=== PATIENT | male | born 1990 | race Asian ===

== ENCOUNTER 2018-04-02 21:29 | Observation (INO) ==
--- NOTE | 2018-04-02 22:31 | ED ---
HPI General Chief Complaint: Abdominal Pain Stated Complaint: nausea vomiting, lower abdominal pain Time Seen by Provider: 04/02/18 22:17 Source: patient Mode of arrival: ambulatory Limitations: no limitations History of Present Illness HPI narrative: 27-year-old male came to the emergency room with history of significant abdominal pain pointing to the left lower quadrant area with vomiting and diarrhea that started today. Patient says that he has had this kind of pain in the past and was diagnosed with pancreatitis. He appeared to be in significant distress. Patient was tachycardic upon arrival. Patient said he had 4-5 episodes of vomiting and 2 episodes of diarrhea. He is otherwise a healthy person. Related Data Previous Rx's Medication Instructions Recorded pantoprazole 40 mg PO DAILY 30 Days #30 tab 04/03/18 Allergies Allergy/AdvReac Type Severity Reaction Status Date / Time penicillamine Allergy Shortness Verified 04/02/18 22:18 of Breath Review of Systems ROS: all other systems reviewed are negative [facility] Medical History Medical History GERD (gastroesophageal reflux disease) (Acute) IBS (irritable bowel syndrome) (Acute) Pancreatitis (Acute) Surgical History Surgical History No history of previous surgery (Acute) Family History Family History Other Coronary artery disease Social History Social History Substance History: Active Abuse Second Hand Smoke Exposure: No Smoking Status: Never smoker How Often Do You Have a Drink Containing Alcohol: Monthly or less Recent Travel in [facility] within the Last 8 Weeks: No Recent Out of Country Travel within the Last 8 Weeks: No Substance Abuse Detail Marijuana: Substance Use Status: Active Route Used Substance Abuse: By Mouth Reason for Use: Calm Down and Feels Good Immunization History Tetanus Immunization: >5 Years Exam Narrative Exam Narrative: GENERAL: Awake, alert, moderate to significant distress SKIN: Focused skin assessment warm/dry. HEAD: Atraumatic. Normocephalic. EYES: Pupils equal and round. No scleral icterus. No injection or drainage. ENT: No nasal bleeding or discharge. Mucous membranes pink and moist. NECK: Trachea midline. No JVD. CARDIOVASCULAR: Regular rate and rhythm. No murmur appreciated. RESPIRATORY: No accessory muscle use. Clear to auscultation. Breath sounds equal bilaterally. GASTROINTESTINAL: Abdomen soft, left lower quadrant tenderness, guarding. Hepatic and splenic margins not palpable. MUSCULOSKELETAL: No obvious deformities. No clubbing. No cyanosis. No edema. NEUROLOGICAL: Awake and alert. No obvious cranial nerve deficits. Motor grossly within normal limits. Normal speech. PSYCHIATRIC: Appropriate mood and affect; insight and judgment normal. Course Initial Documented Vital Signs Temperature 98.7 F 04/02/18 21:48 Pulse Rate 109 H 04/02/18 21:48 Respiratory Rate 16 04/02/18 21:48 Blood Pressure 121/83 04/02/18 21:48 Pulse Oximetry 100 04/02/18 21:48 Last Documented Vital Signs Temperature 97.6 F 04/03/18 11:04 Pulse Rate 94 H 04/03/18 11:04 Respiratory Rate 20 04/03/18 11:04 Blood Pressure 105/54 L 04/03/18 11:04 Pulse Oximetry 95 04/03/18 11:04 Medical Decision Making MDM Narrative Medical decision making narrative: 1:07 AM blood test results are back and patient has leukocytosis and lactic acidosis. He was given pain medication and IV fluid bolus. CT scan however appears to be negative as per the radiologist report. Patient was given IV Levaquin and IV Flagyl to cover for sepsis. I discussed the case with the hospitalist who has accepted the patient. I have ordered stool for C. difficile but patient has not had any more stool episodes here. Medical Screen Exam Complete: Yes Emergency Medical Condition: Yes Lab Data Result diagrams: 04/03/18 02:50 04/03/18 02:50 Lab Results 04/02/18 04/02/18 04/02/18 Range/Units 22:50 22:50 23:36 WBC 21.9 H (4.0-11.0) th/mm3 RBC 5.39 (4.50-5.90) mil/mm3 Hgb 17.3 H (13.0-17.0) gm/dL Hct 51.4 H (39.0-51.0) % MCV 95.3 (80.0-100.0) fL MCH 32.1 (27.0-34.0) pg MCHC 33.7 (32.0-36.0) % RDW 13.4 (11.6-17.2) % Plt Count 241 (150-450) th/mm3 MPV 8.3 (7.0-11.0) fL Neut % (Auto) 92.0 H (16.0-70.0) % Lymph % (Auto) 5.3 L (9.0-44.0) % [place] % (Auto) 2.6 (0.0-8.0) % Eos % (Auto) 0.0 (0.0-4.0) % Baso % (Auto) 0.1 (0.0-2.0) % Neut # (Auto) 20.2 H (1.8-7.7) th/mm3 Lymph # (Auto) 1.2 (1.0-4.8) th/mm3 [place] # (Auto) 0.6 (0.0-0.9) th/mm3 Eos # (Auto) 0.0 (0.0-0.4) th/mm3 Baso # (Auto) 0.0 (0.0-0.2) th/mm3 WBC Differential . Differential Comment Auto diff final Sodium 137 (136-145) meq/L Potassium 4.3 (3.5-5.1) meq/L Chloride 104 (98-107) meq/L Carbon Dioxide 19.5 L (21.0-32.0) meq/L Anion Gap 14 (5-15) meq/L BUN 25 H (7-18) mg/dL Creatinine 1.72 H (0.60-1.30) mg/dL Estimated GFR 47 L (>89) mL/min Random Glucose 132 H (74-106) mg/dL Lactic Acid 3.5 H (0.4-2.0) mmol/L Calcium 10.0 (8.5-10.1) mg/dL Magnesium 1.9 (1.5-2.5) mg/dL Total Bilirubin 0.5 (0.2-1.0) mg/dL AST 17 (15-37) U/L ALT 23 (12-78) U/L Alkaline Phosphatase 77 (45-117) U/L Total Protein 9.3 H (6.4-8.2) g/dL Albumin 5.3 H (3.4-5.0) g/dL Lipase 95 (73-393) U/L Urine Color (Yellw/Straw) Urine Clarity (Clear) Urine pH (5.0-8.5) Ur Specific [place] (1.002-1.035) Urine Protein (Neg-Trace) mg/dL Urine Glucose (UA) (Negative) mg/dL Urine Ketones (Negative) mg/dL Urine Occult Blood (Negative) Urine Nitrate (Negative) Urine Bilirubin (Negative) Urine Urobilinogen (Less than 2) mg/dL Ur Leukocyte Esterase (Negative) Urine RBC (0-3) /hpf Urine WBC (0-5) /hpf Ur Squamous Epith Cells (0-5) /hpf Hyaline Casts (0-3) /lpf Urine Mucus (Occasional) /lpf Micro UA Comment Ur Microscopic Review Urine Culture Comments 04/03/18 04/03/18 04/03/18 Range/Units 00:57 02:50 02:50 WBC 13.8 H (4.0-11.0) th/mm3 RBC 4.29 L (4.50-5.90) mil/mm3 Hgb 13.7 D (13.0-17.0) gm/dL Hct 41.3 (39.0-51.0) % MCV 96.3 (80.0-100.0) fL MCH 31.9 (27.0-34.0) pg MCHC 33.1 (32.0-36.0) % RDW 13.2 (11.6-17.2) % Plt Count 181 (150-450) th/mm3 MPV 7.8 (7.0-11.0) fL Neut % (Auto) 88.5 H (16.0-70.0) % Lymph % (Auto) 7.4 L (9.0-44.0) % [place] % (Auto) 3.6 (0.0-8.0) % Eos % (Auto) 0.0 (0.0-4.0) % Baso % (Auto) 0.5 (0.0-2.0) % Neut # (Auto) 12.2 H (1.8-7.7) th/mm3 Lymph # (Auto) 1.0 (1.0-4.8) th/mm3 [place] # (Auto) 0.5 (0.0-0.9) th/mm3 Eos # (Auto) 0.0 (0.0-0.4) th/mm3 Baso # (Auto) 0.1 (0.0-0.2) th/mm3 WBC Differential . Differential Comment Auto diff final Sodium (136-145) meq/L Potassium (3.5-5.1) meq/L Chloride (98-107) meq/L Carbon Dioxide (21.0-32.0) meq/L Anion Gap (5-15) meq/L BUN (7-18) mg/dL Creatinine (0.60-1.30) mg/dL Estimated GFR (>89) mL/min Random Glucose (74-106) mg/dL Lactic Acid 2.2 H (0.4-2.0) mmol/L Calcium (8.5-10.1) mg/dL Magnesium (1.5-2.5) mg/dL Total Bilirubin (0.2-1.0) mg/dL AST (15-37) U/L ALT (12-78) U/L Alkaline Phosphatase (45-117) U/L Total Protein (6.4-8.2) g/dL Albumin (3.4-5.0) g/dL Lipase (73-393) U/L Urine Color Yellow (Yellw/Straw) Urine Clarity Clear (Clear) Urine pH 6.0 (5.0-8.5) Ur Specific [place] 1.040 H (1.002-1.035) Urine Protein 30 H (Neg-Trace) mg/dL Urine Glucose (UA) Negative (Negative) mg/dL Urine Ketones Trace H (Negative) mg/dL Urine Occult Blood Negative (Negative) Urine Nitrate Negative (Negative) Urine Bilirubin Negative (Negative) Urine Urobilinogen Less than 2 (Less than 2) mg/dL Ur Leukocyte Esterase Negative (Negative) Urine RBC 2 (0-3) /hpf Urine WBC 1 (0-5) /hpf Ur Squamous Epith Cells <1 (0-5) /hpf Hyaline Casts 15 (0-3) /lpf Urine Mucus Few H (Occasional) /lpf Micro UA Comment Culture not ind Ur Microscopic Review Not Reportable Urine Culture Comments Culture not ind 04/03/18 04/03/18 Range/Units 02:50 07:26 WBC (4.0-11.0) th/mm3 RBC (4.50-5.90) mil/mm3 Hgb (13.0-17.0) gm/dL Hct (39.0-51.0) % MCV (80.0-100.0) fL MCH (27.0-34.0) pg MCHC (32.0-36.0) % RDW (11.6-17.2) % Plt Count (150-450) th/mm3 MPV (7.0-11.0) fL Neut % (Auto) (16.0-70.0) % Lymph % (Auto) (9.0-44.0) % [place] % (Auto) (0.0-8.0) % Eos % (Auto) (0.0-4.0) % Baso % (Auto) (0.0-2.0) % Neut # (Auto) (1.8-7.7) th/mm3 Lymph # (Auto) (1.0-4.8) th/mm3 [place] # (Auto) (0.0-0.9) th/mm3 Eos # (Auto) (0.0-0.4) th/mm3 Baso # (Auto) (0.0-0.2) th/mm3 WBC Differential Differential Comment Sodium 142 (136-145) meq/L Potassium 4.3 (3.5-5.1) meq/L Chloride 111 H (98-107) meq/L Carbon Dioxide 22.8 (21.0-32.0) meq/L Anion Gap 8 (5-15) meq/L BUN 21 H (7-18) mg/dL Creatinine 1.19 (0.60-1.30) mg/dL Estimated GFR 72 L (>89) mL/min Random Glucose 124 H (74-106) mg/dL Lactic Acid 0.9 (0.4-2.0) mmol/L Calcium 7.6 L D (8.5-10.1) mg/dL Magnesium (1.5-2.5) mg/dL Total Bilirubin 0.3 (0.2-1.0) mg/dL AST 10 L (15-37) U/L ALT 18 (12-78) U/L Alkaline Phosphatase 53 (45-117) U/L Total Protein 6.4 D (6.4-8.2) g/dL Albumin 3.6 D (3.4-5.0) g/dL Lipase (73-393) U/L Urine Color (Yellw/Straw) Urine Clarity (Clear) Urine pH (5.0-8.5) Ur Specific [place] (1.002-1.035) Urine Protein (Neg-Trace) mg/dL Urine Glucose (UA) (Negative) mg/dL Urine Ketones (Negative) mg/dL Urine Occult Blood (Negative) Urine Nitrate (Negative) Urine Bilirubin (Negative) Urine Urobilinogen (Less than 2) mg/dL Ur Leukocyte Esterase (Negative) Urine RBC (0-3) /hpf Urine WBC (0-5) /hpf Ur Squamous Epith Cells (0-5) /hpf Hyaline Casts (0-3) /lpf Urine Mucus (Occasional) /lpf Micro UA Comment Ur Microscopic Review Urine Culture Comments Imaging Data Radiologist's impression: Abdomen/Pelvis CT 04/03/18 00:00 CONCLUSION: 1. No definite acute CT abnormality in the abdomen or pelvis. Discharge Plan Discharge Disposition Patient Disposition: ED Admit(ED Internal Use Only) Discharge Order Discharge Orders: Discharge Order (Routine); Ordered 04/03/18 Ordered By: Lexi Abel ED Use Only Admit Order (Routine); Ordered 04/03/18 Ordered By: Ginger Delacruz Discharge Details Anticipated Discharge Date: 04/03/18 Physicians Team ED Provider: Ginger Delacruz Primary Care Provider: Primary Care Lian Butler Attending Provider: Lexi Abel Status ED Status: Left Department Discharge Information Discharge Date/Time: 04/03/18 03:32
[2018-04-02] MEDS ORDERED: Ketorolac Inj 30 MG/ML (IVP) Vial IV.PUSH ONE (22:36)
[2018-04-02] MEDS ORDERED: Pantoprazole Inj 40 MG Vial IV.PUSH ONE (22:36)
[2018-04-02] MEDS: Sod Chloride 0.9% Inj 1,000 ML IV.SIG ONE ×2 (22:45→23:30)
[2018-04-02 23:08] LABS: Baso % (Auto) 0.1 % (0.0-2.0); Hematocrit 51.4 % (39.0-51.0); Hemoglobin 17.3 gm/dL (13.0-17.0); Lymph # (Auto) 1.2 th/mm3 (1.0-4.8); Lymph % (Auto) 5.3 % (9.0-44.0); Mean Corpuscular HGB Conc 33.7 % (32.0-36.0); Mean Corpuscular Hemoglobin 32.1 pg (27.0-34.0); Mean Corpuscular Volume 95.3 fL (80.0-100.0); Mean Platelet Volume 8.3 fL (7.0-11.0); Mono # (Auto) 0.6 th/mm3 (0.0-0.9); Mono % (Auto) 2.6 % (0.0-8.0); Neut # (Auto) 20.2 th/mm3 (1.8-7.7); Platelet Count 241 th/mm3 (150-450); Red Blood Count 5.39 mil/mm3 (4.50-5.90); Red Cell Distribution Width 13.4 % (11.6-17.2); White Blood Count 21.9 th/mm3 (4.0-11.0)
[2018-04-02 23:19] LABS: Alanine Aminotransferase 23 U/L (12-78); Albumin 5.3 g/dL (3.4-5.0); Anion Gap 14 meq/L (5-15); Aspartate Aminotransferase 17 U/L (15-37); Blood Urea Nitrogen 25 mg/dL (7-18); Carbon Dioxide 19.5 meq/L (21.0-32.0); Chloride 104 meq/L (98-107); Glomerular Filtration Rate 47 mL/min (>89); Glucose,Random 132 mg/dL (74-106); Lipase 95 U/L (73-393); Magnesium 1.9 mg/dL (1.5-2.5); Potassium 4.3 meq/L (3.5-5.1); Sodium 137 meq/L (136-145)
[2018-04-02 23:22] LABS: Alkaline Phosphatase 77 U/L (45-117); Total Protein 9.3 g/dL (6.4-8.2)
[2018-04-02] MEDS ORDERED: Sod Chloride 0.9% Inj 1,000 ML IV.SIG SCH (23:30)
[2018-04-03] MEDS ORDERED: Sod Chloride 0.9% Inj 1,000 ML IV.SIG SCH (00:15)
--- NOTE | 2018-04-03 00:47 | CT ---
EXAM DATE: 04/03/2018 12:42 AM EST AGE/SEX: 27 years / Male INDICATIONS: Left lower qaudrant pain with vomiting. CLINICAL DATA: This is the patient's initial encounter. Patient reports that signs and symptoms have been present for 1 day and indicates a pain score of 10/10. MEDICAL/SURGICAL HISTORY: Irritable bowel syndrome. Pancreatitis. None. ORAL CONTRAST: No oral contrast ingested. RADIATION DOSE: 7.60 CTDI (mGy) COMPARISON: No prior exams available for comparison. TECHNIQUE: Multiple contiguous axial images were obtained through the abdomen and pelvis following b olus infusion of 70 ml Omnipaque 350 (iohexol) nonionic water-soluble contrast as a single exam dos e. No oral contrast ingested. Using automated exposure control and adjustment of the mA and/or kV ac cording to patient size, radiation dose was kept as low as reasonably achievable to obtain optimal di agnostic quality images. DICOM format image data is available electronically for review and comparis on. FINDINGS: LOWER LUNGS: The visualized lower lungs are clear. LIVER: The liver has a homogeneous density without space-occupying lesion. There is no dilation of t he biliary tree. SPLEEN: Homogeneous density without enlargement. PANCREAS: Unremarkable without mass or calcification. KIDNEYS: Kidneys demonstrate symmetrical enhancement and are symmetrical in size without evidence fo r radiopaque renal calculi or hydronephrosis. ADRENAL GLANDS: Unremarkable. AORTA: Mami-aneurysmal. BOWEL/MESENTERY: : Is decompressed which accentuates the colonic wall. Appendix is visualized and no rmal in appearance. Small bowel loops are normal in caliber. No evidence for obstruction. No free flu id or drainable fluid collections. No pneumatosis or free air. ABDOMINAL WALL: Intact. RETROPERITONEUM: No evidence of adenopathy in the retrocrural, para-aortic, or deep pelvic regions. BLADDER: Contours are smooth. REPRODUCTIVE: No abnormal masses or calcifications seen. BONY STRUCTURES: Unremarkable. CONCLUSION: 1. No definite acute CT abnormality in the abdomen or pelvis. Electronically signed by: Ruel De Anda MD Board Certified Radiologist 04/03/2018 12:46 AM E
[2018-04-03] MEDS ORDERED: Morphine Inj 4 MG/ML Vial IV.PUSH ONE (00:52)
[2018-04-03 01:21] LABS: Bilirubin,Urine Negative (Negative); Clarity,Urine Clear (Clear); Color,Urine Yellow (Yellw/Straw); Glucose,Urine (UA) Negative (Negative); Hyaline Casts,Urine 15 /lpf (0-3); Leukocyte Esterase,Urine Negative (Negative); Mucus,Urine Few /lpf (Occasional); Nitrite,Urine Negative (Negative); Squamous Epithelial Cell,Urine <1 /hpf (0-5)
[2018-04-03] MEDS ORDERED: Bisacodyl 10 MG Supp RECTAL PRN (02:08)
[2018-04-03] MEDS ORDERED: Acetaminophen 325 MG Tablet PO PRN (02:08)
[2018-04-03] MEDS ORDERED: Sod Chloride 0.9% Inj 1,000 ML IV.CONT SCH (02:15)
[2018-04-03] MEDS ORDERED: Morphine Inj 4 MG/ML Vial IV.PUSH PRN (02:30)
[2018-04-03 02:58] LABS: Baso # (Auto) 0.1 th/mm3 (0.0-0.2); Baso % (Auto) 0.5 % (0.0-2.0); Hematocrit 41.3 % (39.0-51.0); Hemoglobin 13.7 gm/dL (13.0-17.0); Lymph % (Auto) 7.4 % (9.0-44.0); Mean Corpuscular HGB Conc 33.1 % (32.0-36.0); Mean Corpuscular Hemoglobin 31.9 pg (27.0-34.0); Mean Corpuscular Volume 96.3 fL (80.0-100.0); Mean Platelet Volume 7.8 fL (7.0-11.0); Mono # (Auto) 0.5 th/mm3 (0.0-0.9); Mono % (Auto) 3.6 % (0.0-8.0); Neut # (Auto) 12.2 th/mm3 (1.8-7.7); Neut % (Auto) 88.5 % (16.0-70.0); Platelet Count 181 th/mm3 (150-450); Red Blood Count 4.29 mil/mm3 (4.50-5.90); Red Cell Distribution Width 13.2 % (11.6-17.2); White Blood Count 13.8 th/mm3 (4.0-11.0)
--- NOTE | 2018-04-03 03:34 | P.HP ---
History of Present Illness Service: [facility] Primary Care Physician: No Primary Care Physician History of Present Illness: 27-year-old male with a past medical history significant for IBS, GERD and previous episode of pancreatitis presents to the emergency department for evaluation of abdominal pain, nausea and vomiting. The patient reports that when he went to work this morning he had reflux. He endorses nausea and vomiting throughout the day with severe, left-sided abdominal pain. He endorses associated chills without fever. He states he feels like he has eaten too much junk food recently and his body cannot handle it. He denies any chest pain breath. Review of Systems All other systems reviewed negative except as stated in HPI [facility] - History History Provided By: Patient - Medical History Medical History: Medical History (Last Updated 04/03/18 @ 03:29 by Ruthann Mason MD) GERD (gastroesophageal reflux disease) IBS (irritable bowel syndrome) Pancreatitis - Surgical History Surgical History: Surgical History (Last Reviewed 04/03/18 @ 03:29 by Ruthann Mason MD) No history of previous surgery - Family History Family History: Family History (Last Updated 04/03/18 @ 03:30 by Ruthann Mason MD) Other Coronary artery disease - Social History I have reviewed the patient's Social History: Yes - Tobacco History Second Hand Smoke Exposure: No Tobacco Use In Past 30 Days: No Smoking Status: Never smoker - Alcohol History How Often Do You Have a Drink Containing Alcohol: Monthly or less - Substance Use History Substance History: Active Abuse - Substance Use Type Marijuana Status: Active Route Used: By Mouth Reason for Use: Calm Down, Feels Good - Travel History Recent Travel in the [place] Within the Last 8 Weeks: No Recent Travel Out of the Country Within the Last 8 Weeks: No - Immunization History Tetanus Immunization: >5 Years Medications and Allergies Active Medications: Active Medications Acetaminophen (Tylenol) 650 mg PO Q4H PRN PRN Reason: Temp > 100.4 Al Hydroxide/Mg Hydroxide (Milk Of Magnesia Liq) 30 ml PO Q12H PRN PRN Reason: Mild Constipation Bisacodyl (Dulcolax Supp) 10 mg RECTAL DAILY PRN PRN Reason: SEVERE CONSITIPATION Sodium Chloride (Ns Inj) 1,000 mls @ 100 mls/hr IV.CONT .Q10H [facility] Last Admin: 04/03/18 02:30 Dose: 100 mls/hr Lactulose (Lactulose Liq) 30 ml PO DAILY PRN PRN Reason: SEVERE CONSITIPATION Morphine Sulfate (Morphine Inj) 2 mg IV.PUSH Q4H PRN PRN Reason: Pain 6-10 Ondansetron HCl (Zofran Inj) 4 mg IV.PUSH Q6H PRN PRN Reason: NAUSEA OR VOMITING Senna/Docusate Sodium (Tamra-Colace) 1 tab PO BID [facility] Sennosides (Senokot) 17.2 mg PO Q12H PRN PRN Reason: Moderate Constipation Sodium Chloride (Ns Flush) 2 ml IV.FLUSH BID LEO Sodium Chloride (Ns Flush) 2 ml IV.FLUSH PRN PRN PRN Reason: FLUSH AFTER USING IV ACCESS Allergies Allergy/AdvReac Type Severity Reaction Status Date / Time penicillamine Allergy Shortness Verified 04/02/18 22:18 of Breath Home Medications Medication Instructions Recorded Confirmed Type No Known Home Medications 04/02/18 04/02/18 History Exam Vital signs: Vital Signs 04/02/18 21:48 04/03/18 01:47 Temperature 98.7 F Pulse Rate 109 H 95 H Respiratory Rate 16 18 Blood Pressure 121/83 139/73 Pulse Oximetry 100 95 Intake & Output 04/02/18 04/02/18 04/03/18 06:59 18:59 06:59 Intake Total 3250 / 3250 Balance 3250 / 3250 Weight 81.647 kg Intake: IV 3250 / 3250 Levaquin 750 mg Premix Inj 150 150 / 150 ML @ 100 mls/hr IV.SIG ONCE ONE Rx#:[id number] NS Inj 1,000 ML @ 1000 mls/hr 3000 / 3000 IV.SIG BOLUS LEO Rx#:[id number] Flagyl 500 MG Inj 100 ML @ 100 100 / 100 mls/hr IV.SIG ONCE ONE Rx#: [id number] Narrative: Gen.: No acute distress Head: Normocephalic. Atraumatic. EENT: Pupils equal round and reactive to light. Nose without drainage. Airway intact. Throat without injection. Cardiovascular: Regular rate and rhythm. No murmurs, rubs or gallops. Respiratory: Lungs clear to auscultation bilaterally. No wheezes or rhonchi. Abdomen: Soft, extremely tender to palpation in the left lower quadrant, nondistended. No peritoneal signs. Musculoskeletal: No gross deformities. No edema. Skin: No obvious rashes or erythema. Neuro: Sensory and motor grossly intact. Cranial nerves II through XII grossly intact. Results - Labs CBC & Chem 7: 04/03/18 02:50 04/02/18 22:50 Labs: Laboratory Results - last 24 hr 04/02/18 04/02/18 04/02/18 22:50 22:50 23:36 WBC 21.9 H RBC 5.39 Hgb 17.3 H Hct 51.4 H MCV 95.3 MCH 32.1 MCHC 33.7 RDW 13.4 Plt Count 241 MPV 8.3 Neut % (Auto) 92.0 H Lymph % (Auto) 5.3 L [place] % (Auto) 2.6 Eos % (Auto) 0.0 Baso % (Auto) 0.1 Neut # (Auto) 20.2 H Lymph # (Auto) 1.2 [place] # (Auto) 0.6 Eos # (Auto) 0.0 Baso # (Auto) 0.0 WBC Differential . Differential Comment Auto diff final Sodium 137 Potassium 4.3 Chloride 104 Carbon Dioxide 19.5 L Anion Gap 14 BUN 25 H Creatinine 1.72 H Estimated GFR 47 L Random Glucose 132 H Lactic Acid 3.5 H Calcium 10.0 Magnesium 1.9 Total Bilirubin 0.5 AST 17 ALT 23 Alkaline Phosphatase 77 Total Protein 9.3 H Albumin 5.3 H Lipase 95 Urine Color Urine Clarity Urine pH Ur Specific [place] Urine Protein Urine Glucose (UA) Urine Ketones Urine Occult Blood Urine Nitrate Urine Bilirubin Urine Urobilinogen Ur Leukocyte Esterase Urine RBC Urine WBC Ur Squamous Epith Cells Hyaline Casts Urine Mucus Micro UA Comment Ur Microscopic Review Urine Culture Comments 04/03/18 04/03/18 04/03/18 00:57 02:50 02:50 WBC 13.8 H RBC 4.29 L Hgb 13.7 D Hct 41.3 MCV 96.3 MCH 31.9 MCHC 33.1 RDW 13.2 Plt Count 181 MPV 7.8 Neut % (Auto) 88.5 H Lymph % (Auto) 7.4 L [place] % (Auto) 3.6 Eos % (Auto) 0.0 Baso % (Auto) 0.5 Neut # (Auto) 12.2 H Lymph # (Auto) 1.0 [place] # (Auto) 0.5 Eos # (Auto) 0.0 Baso # (Auto) 0.1 WBC Differential . Differential Comment Auto diff final Sodium Potassium Chloride Carbon Dioxide Anion Gap BUN Creatinine Estimated GFR Random Glucose Lactic Acid 2.2 H Calcium Magnesium Total Bilirubin AST ALT Alkaline Phosphatase Total Protein Albumin Lipase Urine Color Yellow Urine Clarity Clear Urine pH 6.0 Ur Specific [place] 1.040 H Urine Protein 30 H Urine Glucose (UA) Negative Urine Ketones Trace H Urine Occult Blood Negative Urine Nitrate Negative Urine Bilirubin Negative Urine Urobilinogen Less than 2 Ur Leukocyte Esterase Negative Urine RBC 2 Urine WBC 1 Ur Squamous Epith Cells <1 Hyaline Casts 15 Urine Mucus Few H Micro UA Comment Culture not ind Ur Microscopic Review Not Reportable Urine Culture Comments Culture not ind - Imaging Impressions Abdomen/Pelvis CT 04/03/18 00:00 CONCLUSION: 1. No definite acute CT abnormality in the abdomen or pelvis. Caprini VTE Risk Assessment Caprini VTE Risk Assessment: No/Low Risk (score <= 1) Caprini Risk Assessment Model: Point Value = 1 Point Value = 2 Point Value = 3 Point Value = 5 Age 41-60 Minor surgery BMI > 25 kg/m2 Swollen legs Varicose veins or History of unexplained or recurrent spontaneous Oral contraceptives or hormone replacement Sepsis (< 1 month) Serious lung disease, including pneumonia (< 1 month) Abnormal pulmonary function Acute myocardial infarction Congestive heart failure (< 1 month) History of inflammatory bowel disease Medical patient at bed rest Age 61-74 Arthroscopic surgery Major open surgery (> 45 min) Laparoscopic surgery (> 45 min) Malignancy Confined to bed (> 72 hours) Immobilizing plaster cast Central venous access Age >= 75 History of VTE Family history of VTE Factor V Leiden Prothrombin [id number] Lupus anticoagulant Anticardiolipin antibodies Elevated serum homocysteine Heparin-induced thrombocytopenia Other congenital or acquired thrombophilia Stroke (< 1 month) Elective arthroplasty Hip, pelvis, or leg fracture Acute spinal cord injury (< 1 month) Prophylaxis Regimen: Total Risk Factor Score Risk Level Prophylaxis Regimen 0-1 Low Early ambulation 2 Moderate Order ONE of the following: *Sequential Compression Device (SCD) *Heparin 5000 units SQ BID 3-4 Higher Order ONE of the following medications: *Heparin 5000 units SQ TID *Enoxaparin/Lovenox 40 mg SQ daily (WT < 150 kg, CrCl > 30 mL/min) *Enoxaparin/Lovenox 30 mg SQ daily (WT < 150 kg, CrCl > 10-29 mL/min) *Enoxaparin/Lovenox 30 mg SQ BID (WT < 150 kg, CrCl > 30 mL/min) AND/OR *Sequential Compression Device (SCD) 5 or more Highest Order ONE of the following medications: *Heparin 5000 units SQ TID (Preferred with Epidurals) *Enoxaparin/Lovenox 40 mg SQ daily (WT < 150 kg, CrCl > 30 mL/min) *Enoxaparin/Lovenox 30 mg SQ daily (WT < 150 kg, CrCl > 10-29 mL/min) *Enoxaparin/Lovenox 30 mg SQ BID (WT < 150 kg, CrCl > 30 mL/min) AND *Sequential Compression Device (SCD) Assessment and Plan - Plan Assessment/plan: 1. Abdominal pain/nausea/vomiting Patient with IBS and GERD Lipase 95 CT of the abdomen/pelvis negative for acute process IV fluid hydration, Zofran, morphine 2. Elevated lactic acid Patient's lactic acid 3.5 on arrival to the emergency department, 2.2 after IV fluid hydration Suspect secondary to nausea/vomiting No signs of infectious process 3. Acute kidney injury BUN/creatinine 25/1.72 Suspect secondary to vomiting and dehydration IV fluid hydration Monitor renal function 4. GERD IV Protonix FEN N.p.o. NS at 100 cc/hour
[2018-04-03 03:48] LABS: Alanine Aminotransferase 18 U/L (12-78); Albumin 3.6 g/dL (3.4-5.0); Alkaline Phosphatase 53 U/L (45-117); Anion Gap 8 meq/L (5-15); Aspartate Aminotransferase 10 U/L (15-37); Blood Urea Nitrogen 21 mg/dL (7-18); Calcium 7.6 mg/dL (8.5-10.1); Carbon Dioxide 22.8 meq/L (21.0-32.0); Chloride 111 meq/L (98-107); Glomerular Filtration Rate 72 mL/min (>89); Glucose,Random 124 mg/dL (74-106); Potassium 4.3 meq/L (3.5-5.1); Sodium 142 meq/L (136-145); Total Protein 6.4 g/dL (6.4-8.2)
[2018-04-03 07:25] VITALS: RESP 20; TEMP 97.6
[2018-04-03] MEDS ORDERED: Senna/Docusate Sodium 8.6/50 MG Tablet PO SCH (09:00)
[2018-04-03] MEDS ORDERED: Pantoprazole Inj 40 MG Vial IV.PUSH SCH (09:00)
--- NOTE | 2018-04-03 10:56 | P.PN ---
Subjective Interval history: feeling better nhungry no nause aor vomiting no further diarreha voiding well Physical Exam Vital signs: Vital Signs 04/02/18 21:48 04/03/18 01:47 04/03/18 04:00 Temperature 98.7 F 98.5 F Pulse Rate 109 H 95 H 90 Respiratory Rate 16 18 18 Blood Pressure 121/83 139/73 108/51 L Pulse Oximetry 100 95 94 L 04/03/18 07:25 Temperature 97.6 F Pulse Rate 105 H Respiratory Rate 20 Blood Pressure 106/59 L Pulse Oximetry 96 Intake & Output 04/02/18 04/03/18 04/03/18 18:59 06:59 18:59 Intake Total 3250 / 3250 Balance 3250 / 3250 Weight 79.379 kg Intake: IV 3250 / 3250 Levaquin 750 mg Premix Inj 150 150 / 150 ML @ 100 mls/hr IV.SIG ONCE ONE Rx#:[id number] NS Inj 1,000 ML @ 1000 mls/hr 3000 / 3000 IV.SIG BOLUS LEO Rx#:[id number] Flagyl 500 MG Inj 100 ML @ 100 100 / 100 mls/hr IV.SIG ONCE ONE Rx#: [id number] Other: Date of Last Bowel Movement 04/03/18 Weight On Admission 79.379 kg Narrative: Gen.: No acute distress Head: Normocephalic. Atraumatic. Cardiovascular: Regular rate and rhythm. No murmurs, rubs or gallops. Respiratory: Lungs clear to auscultation bilaterally. No wheezes or rhonchi. Abdomen: Soft,nontender, good bowerl sounds, no guarding Musculoskeletal: No gross deformities. No edema. Skin: No obvious rashes or erythema. Neuro: Sensory and motor grossly intact. Cranial nerves II through XII grossly intact. Results - Labs CBC & Chem 7: 04/03/18 02:50 04/03/18 02:50 Laboratory Results - last 24 hr 04/02/18 04/02/18 04/02/18 22:50 22:50 23:36 WBC 21.9 H RBC 5.39 Hgb 17.3 H Hct 51.4 H MCV 95.3 MCH 32.1 MCHC 33.7 RDW 13.4 Plt Count 241 MPV 8.3 Neut % (Auto) 92.0 H Lymph % (Auto) 5.3 L [place] % (Auto) 2.6 Eos % (Auto) 0.0 Baso % (Auto) 0.1 Neut # (Auto) 20.2 H Lymph # (Auto) 1.2 [place] # (Auto) 0.6 Eos # (Auto) 0.0 Baso # (Auto) 0.0 WBC Differential . Differential Comment Auto diff final Sodium 137 Potassium 4.3 Chloride 104 Carbon Dioxide 19.5 L Anion Gap 14 BUN 25 H Creatinine 1.72 H Estimated GFR 47 L Random Glucose 132 H Lactic Acid 3.5 H Calcium 10.0 Magnesium 1.9 Total Bilirubin 0.5 AST 17 ALT 23 Alkaline Phosphatase 77 Total Protein 9.3 H Albumin 5.3 H Lipase 95 Urine Color Urine Clarity Urine pH Ur Specific [place] Urine Protein Urine Glucose (UA) Urine Ketones Urine Occult Blood Urine Nitrate Urine Bilirubin Urine Urobilinogen Ur Leukocyte Esterase Urine RBC Urine WBC Ur Squamous Epith Cells Hyaline Casts Urine Mucus Micro UA Comment Ur Microscopic Review Urine Culture Comments 04/03/18 04/03/18 04/03/18 00:57 02:50 02:50 WBC 13.8 H RBC 4.29 L Hgb 13.7 D Hct 41.3 MCV 96.3 MCH 31.9 MCHC 33.1 RDW 13.2 Plt Count 181 MPV 7.8 Neut % (Auto) 88.5 H Lymph % (Auto) 7.4 L [place] % (Auto) 3.6 Eos % (Auto) 0.0 Baso % (Auto) 0.5 Neut # (Auto) 12.2 H Lymph # (Auto) 1.0 [place] # (Auto) 0.5 Eos # (Auto) 0.0 Baso # (Auto) 0.1 WBC Differential . Differential Comment Auto diff final Sodium Potassium Chloride Carbon Dioxide Anion Gap BUN Creatinine Estimated GFR Random Glucose Lactic Acid 2.2 H Calcium Magnesium Total Bilirubin AST ALT Alkaline Phosphatase Total Protein Albumin Lipase Urine Color Yellow Urine Clarity Clear Urine pH 6.0 Ur Specific [place] 1.040 H Urine Protein 30 H Urine Glucose (UA) Negative Urine Ketones Trace H Urine Occult Blood Negative Urine Nitrate Negative Urine Bilirubin Negative Urine Urobilinogen Less than 2 Ur Leukocyte Esterase Negative Urine RBC 2 Urine WBC 1 Ur Squamous Epith Cells <1 Hyaline Casts 15 Urine Mucus Few H Micro UA Comment Culture not ind Ur Microscopic Review Not Reportable Urine Culture Comments Culture not ind 04/03/18 04/03/18 02:50 07:26 WBC RBC Hgb Hct MCV MCH MCHC RDW Plt Count MPV Neut % (Auto) Lymph % (Auto) [place] % (Auto) Eos % (Auto) Baso % (Auto) Neut # (Auto) Lymph # (Auto) [place] # (Auto) Eos # (Auto) Baso # (Auto) WBC Differential Differential Comment Sodium 142 Potassium 4.3 Chloride 111 H Carbon Dioxide 22.8 Anion Gap 8 BUN 21 H Creatinine 1.19 Estimated GFR 72 L Random Glucose 124 H Lactic Acid 0.9 Calcium 7.6 L D Magnesium Total Bilirubin 0.3 AST 10 L ALT 18 Alkaline Phosphatase 53 Total Protein 6.4 D Albumin 3.6 D Lipase Urine Color Urine Clarity Urine pH Ur Specific [place] Urine Protein Urine Glucose (UA) Urine Ketones Urine Occult Blood Urine Nitrate Urine Bilirubin Urine Urobilinogen Ur Leukocyte Esterase Urine RBC Urine WBC Ur Squamous Epith Cells Hyaline Casts Urine Mucus Micro UA Comment Ur Microscopic Review Urine Culture Comments - Imaging Impressions Abdomen/Pelvis CT 04/03/18 00:00 CONCLUSION: 1. No definite acute CT abnormality in the abdomen or pelvis. Assessment and Plan - Plan 27 yers old Acute gastritis with hsitory of IBS/GERD - not on any chronic meds Lipase 95 CT of the abdomen/pelvis negative for acute process IV fluid hydration, Zofran, morphine start clears 2. Elevated lactic acid secodnary to dehydration- :actic acid improved- dowm 3. Acute kidney injury reanl functions improved start clears. encourgae po BUN/creatinine 25/1.72 Suspect secondary to vomiting and dehydration IV fluid hydration Monitor renal function 4. GERD 0change to po PPI FEN of tolerateing clears dc home and advance diet gradually as OP "knowns what to do" Up and ambulate
[2018-04-03 11:06] VITALS: BP 105/54; PULSE 94; O2SAT 95
== END 2018-04-03 13:00 | disposition home or self-care (01) ==
LOC: NEPC 21:29 → INTOOBSV 04-03 00:55 → NEDA 04-03 00:55 → NEPGCP 04-03 03:16
PROVIDERS: ADMIT Internal Medicine; ATTEND Internal Medicine
CPT/HCPCS: 74177; 80053; 81001; 83605; 83690; 83735; 85025; 87040; 90761; 90765; 90772; 90775; 90782; 96361; 96365; 96372; 96375; 99285; C9113; J1885; J1956; J2270; J2405; J7030; Q9967